=== PATIENT | male | born 1970 | race Hispanic/Latino ===

== ENCOUNTER 2017-06-08 11:52 | Inpatient (IN) | payer OTHER ==
[~2017-06-08] VITALS: Ht 175.3 cm; Wt 82.2 kg
[2017-06-08 13:16] LABS: ABSOLUTE BASOPHIL COUNT 0 /CUMM (0.0-0.2); ABSOLUTE EOSINOPHIL COUNT 0 /CUMM (0.0-0.7); ABSOLUTE GRANULOCYTE CT 4.5 /CUMM (1.4-6.5); ABSOLUTE LYMPH COUNT 3.5 /CUMM (1.2-3.4); ABSOLUTE MONOCYTE COUNT 0.5 /CUMM (0.10-0.60); BASOPHIL % 0.4 % (0.0-2.0); EOSINOPHIL % 0.3 % (0-5); GRANULOCYTE % 52.5 % (42.2-75.2); MEAN CORPUSCULAR HGB 32.5 PG (27.0-31.0); MEAN CORPUSCULAR HGB CONC 33.8 G/DL (33.0-37.0); MEAN CORPUSCULAR VOLUME 96.1 FL (80.0-94.0); MEAN PLATELET VOLUME 7.6 FL (7.4-10.4); PLATELET COUNT 291 /CUMM (130-400); RBC DISTRIBUTION WIDTH 14.3 % (11.5-14.5); RED BLOOD CELL CT 4.48 /CUMM (4.70-6.10); WHITE BLOOD CELL COUNT 8.6 /CUMM (4.8-10.8)
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
[2017-06-08 21:55] VITALS: BP 120/64
[2017-06-09 07:47] VITALS: BP 118/67
[2017-06-09 12:16] VITALS: BP 115/68
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
[2017-06-09 16:05] VITALS: BP 103/58
[2017-06-09 19:59] VITALS: BP 140/68
[2017-06-10 08:56] VITALS: BP 99/62
[2017-06-10 11:54] VITALS: BP 125/77
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
[2017-06-10 15:42] VITALS: BP 116/65
[2017-06-10 20:04] VITALS: BP 113/67
[2017-06-11 07:42] VITALS: BP 122/57
--- NOTE | 2017-06-11 11:08 | CP SOUTH PROGRESS NOTE PSYCH ---
Psych (Inpt) Progress Note Progress Note Include the following elements, when applicable: Involvement in the active treatment of the patient with behavioral observations of the patient and the patient's response to the treatment. Review of the ongoing treatment process in the context of the treatment plan. Indication of how multi-disciplinary staff members are carrying out the treatment plan. Plans for future interventions and recommendations for revision of the treatment plan. Liaison with other physicians/providers. Progress Note: Chart reviewed. Progress discussed with nursing staff. Interviewed patient this morning. Very polite and friendly. Apologetic for outburst yesterday and explained that he received a phone call stating there was an open bed at a local detox. Details were fairly unclear to me but I reassurred him that he will work with the unit staff to find appropriate aftercare. He reports his mood is better today, denies med SEs, and denies SI/hI. Vitals and labs reviewed. Findings are: vitals wnl. No new labs. Mental status exam: adequately groomed HM, multiple tattoos, bearded. Intense eye contact and odd facial expressions. Speech loud, verbose, difficult to interrupt. Mood "alright man". Affect odd, labile, bizarre at times. TP tangential. TC without SI/HI. Denies AVH. Cognition with clear difficulties in short term memory and with evidence of significant impulsivity. I/J limited. Assessment and plan: 47 y/o man with h/o severe TBI, PTSD, and MDD. MSE highly c /w significant brain injury and may benefit from additional agent to target impulsivity and mood lability. Will continue current management as per primary team.
[2017-06-11 12:09] VITALS: BP 112/67
[2017-06-11 16:31] VITALS: BP 118/70
[2017-06-11 19:52] VITALS: BP 107/73
[2017-06-12 07:38] VITALS: BP 114/63
--- NOTE | 2017-06-12 08:48 | CP SOUTH PROGRESS NOTE PSYCH ---
Psych (Inpt) Progress Note Progress Note Dr. Delgadillo's notes were reviewed from the weekend. The treatment team discussed the patient's care, updated his treatment plan, and discussed aftercare plans. The treatment team included nursing staff, social work staff, group and activity therapy staff, and psychiatrist. Vitals: Blood pressure was 114/63 mmHg, pulse was 74 bpm, and temperature was 98.3F. Latest labs were from 06/08/2017: Cholesterol was 150 MG/DL Lab 0 Cholesterol/HDL Ratio 5 % H 06/08/172018 HDL Cholesterol 33 mg/dL L 06/08/172018 LDL Cholesterol, Calc 82 mg/dL 06/08/172018 Triglycerides 177 mg/dL H 06/08/172018 Mental status exam: The patient was adequately groomed, bearded, and showed normal psychomotor activity. His speech was normal, not pressured, and not slurred. He reported that he had a couple of outbursts over the weekend. He reported that it was related to feedback that his girlfriend got from the rehab programs he was trying to get into. Today his speech was normal, however, Dr. Delgadillo noticed over the weekend that he was loud, verbose, and difficult to interrupt. This may have happened after he had his outburst after receiving the news from his girlfriend that rehabs were not going to accept him. Today he described his mood as "alright". He had the reasonable range of affect. He was coherent, there were no loose associations or thought disorder. He denied thinking of suicide, he denied having violent thoughts or thoughts of homicide. He denied hallucinations. There were no delusions during the interview. Assessment: Bobby JonesKendall) is a 47-year-old who was admitted on 06/08/2017 due to "negative thoughts" (i.e. thoughts of suicide as well as thoughts of harming other people). Patient has history of a severe TBI. Family meeting with patient's girlfriend today. The patient seems to be in good control. He has been free of thoughts of suicide and free of thoughts of violence; we agreed on a discharge for tomorrow Treatment Plan Update: Increase Zoloft to 100 mg daily Reduce clonidine to 0.1 mg at bedtime only Continue other medications unchanged We will most likely discharge tomorrow
[2017-06-12 12:19] VITALS: BP 100/67
[2017-06-12 15:45] VITALS: BP 122/57
--- NOTE | 2017-06-12 17:07 | SOCIAL WORKER PROG NOTE PSYCH ---
Social Work Progress Note Progress Note Jessica Parekh (medical student) and this literary writer met with the patient and his girlfriend, Ramonita. Patient shared that he felt anxious about calling [facility] and [facility] and therefore his girlfriend did so for him. Dr. Marquez and this literary writer processed this with him including strategies to manage barriers to treatment. Patient was agreeable to calling [facility]. Patient stated that he is not interested in [facility] due to a negative "feeling" his girlfriend had when she called. Ramonita observed improvement in the patient since hospital admission. Patient stated that he would like to enter rehab and was agreeable to IOP if needing a bridge between this hospital and rehab, and would be interested in [facility]. Per Ramonita, "He definitely wants this medication to be out of his life." Patient and Ramonita confirmed that he will be returning home upon discharge if he does not enter rehab immediately. Patient was provided with a list of inpatient phone numbers and agreed to call them. He was informed that clinical (history and physical, social, diagnostic assessment, initial assessment and medication list) has been faxed to: -[facility], at [address] [facility], , at [address] -[facility], , at [address] [facility], , at [address] -[facility], , at [address] This literary writer left [facility] requesting their fax number for the inpatient program. Patient was informed of this. Patient requested that clinical is not sent to [facility] at this time. This literary writer received a call from Maxine at [facility] stating that the clinical had been reviewed and they felt that a higher level of care is needed. She stated that [facility]'s program is an IOP with housing offered.
--- NOTE | 2017-06-12 19:30 | SOCIAL WORKER PROG NOTE PSYCH ---
Social Work Progress Note Progress Note Concurrent review was submitted through the [facility] online portal and is listed as "Pended." Member Name FELICITAS VARNER Member 1970 Subscriber Name FELICITAS VARNER Pended Authorization #[id number] Client Authorization #[id number] Type of Request CONCURRENT
[2017-06-12 20:04] VITALS: BP 120/68
[2017-06-13 08:21] VITALS: BP 119/64
--- NOTE | 2017-06-13 08:30 | CP SOUTH PROGRESS NOTE PSYCH ---
Psych (Inpt) Progress Note Progress Note The treatment team discussed the patient's care, updated his treatment plan, and discussed aftercare plans. The treatment team included nursing staff, social work staff, group and activity therapy staff, and psychiatrist. Vitals: Blood pressure was 114/63 mmHg, pulse was 74 bpm, and temperature was 98.3F. Latest labs were from 06/08/2017: Cholesterol was 150 MG/DL, Cholesterol/HDL Ratio 5 % H 06/08/17 , HDL Cholesterol 33 mg/dL L , LDL Cholesterol, Calc 82 mg/ dL 06/08/17 Triglycerides 177 mg/dL H Mental status exam: The patient was alert and oriented to time, place, and person. He was in reasonably good spirits this morning. He seem to be ready for discharge and looking forward to it. He was adequately groomed, bearded, and showed normal psychomotor activity. His speech was normal, not pressured, and not slurred. He described his mood as "alright". He denied feeling hopeless, denied thinking of suicide or wishing , and denied having violent thoughts or thoughts of homicide. He was coherent, there were no loose associations or thought disorder. He denied hallucinations. There were no delusions during the interview. Assessment: Bobby Hammer) is a 47-year-old who was admitted on 06/08/2017 due to "negative thoughts" (i.e. thoughts of suicide as well as thoughts of harming other people). Patient has history of a severe TBI. The patient's showed significant improvement and was detoxified without events from opiates. He feels ready for discharge and he seems clinically ready for discharge without any thoughts of self-harm or violent thoughts or thoughts of homicide. There was no psychotic symptoms throughout his admission. Treatment Plan Update: Discharge home with plan to attend the intensive outpatient program dual track Treatment Plan Update: Increase Zoloft to 100 mg daily Reduce clonidine to 0.1 mg at bedtime only Continue other medications unchanged We will most likely discharge tomorrow
[2017-06-13] MEDS ORDERED: LOPERAMIDE2 M2 PO (10:01)
[2017-06-13] MEDS ORDERED: NICOTINE PATCH1 EAC3 TOP (10:01)
[2017-06-13] MEDS ORDERED: ZOLOFT100 M1 PO (10:01)
--- NOTE | 2017-06-13 10:41 | Patient Discharge Instructions ---
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 was Jimmy HALL,Kyler * If you are experiencing an emergency related to this hospitalization, please call [phone] to contact the treating psychiatrist or the psychiatrist-on- call. * To Request a copy of your medical records, please contact the Medical Records Department at [phone]. * To request results of studies pending at the time of discharge, please call [phone]. * Continue your Medications until directed to stop by your Healthcare provider. General Medication Information Please continue to take your new medications and your continued home medications , unless otherwise indicated on your discharge medication list, or unless directed by your MD or [facility] to stop them. Special Instructions Diet Regular Activity Normal - Tobacco Use Treatment Offered Post DC Medications Offered: Script Given-See Med List Post DC Tobacco Treatment Plan: Refused Tobacco Tx Pgm - EtOH/Drug Use D/O Treatment Offered Post DC Medications Offered: Med Not Indicated for D/O Post DC EtOH/SubAbuse TX Plan: [facility] SubAbuse/Dual IOP Metabolic Screening ([X]) Not Applicable, patient not on a neuroleptic. Advance Directives Does the Patient have Medical Advance Directives No/Refused further info Does Pt have Psychiatric Advance Directives? No/Refused further info Does Patient have a Designated Surrogate Decision Maker: No Information About Psychiatric Advance Directives Provided? Refused Discharge Plan Post Hospital Treatment Plan: IOP-Dual
[2017-06-13 12:08] VITALS: BP 122/69
[2017-06-13 12:35] VITALS: BP 122/69
--- NOTE | 2017-06-13 16:42 | SOCIAL WORKER PROG NOTE PSYCH ---
Social Work Progress Note Progress Note This video game script writer met with patient. He described his mood as "good" and was looking forward to going to his IOP intake today (at 2pm). Patient denied SI/HI/AH/VH. He identified his children, mother and Ramonita as protective factors. He stated that his fiance, Ramonita, will be providing transportation home from the IOP intake today. He identified a safety plan in which he would call his therapist and/or utilize the crisis numbers/warm lines, 911, 211 or the ER. Patient stated that he would contact the therapist he has seen in the past (Amrita Jerez) to schedule an individual therapy session and did not need this to be scheduled prior to discharge. Patient was informed that he would be provided with phone numbers for the rehab programs that he was referred to, which he agreed to continue to call following discharge to inquire about bed availability. Patient was informed that this video game script writer received a call from [facility] stating that they did not feel they were the appropriate program and recommended a higher level of care as they are IOP/[facility] with housing. Patient accepted the IOP intake appointment, today at 2pm, as well as the smoking cessation group schedule. Faxed Referral(s) Referred To: [facility] Transition of Care Documents sent: Health Summary Faxed to: [facility] Fax #: [phone] Faxed by: Christine Wagner LCSW Date faxed: 06/13/17 Time Faxed: [phone]
--- NOTE | 2017-06-15 14:01 | SOCIAL WORKER PROG NOTE PSYCH ---
Social Work Progress Note Progress Note This telegraphic typewriter mechanic received a call from Lorna at [facility]. The message was relayed to Trung Pizarro at [facility] with Lorna's phone number ([phone]); she did not provide any additional information/message. He stated that he would contact the patient.
== END 2017-06-13 14:00 | DRG 58 ==
LOC: ERH 11:52 → ERHI 19:47 → CP SOUTH 19:47 → ENTRNSPT 21:36 → EDTRNSPTSTS 21:41 → CMPTRNSPT 21:51 → CP SOUTH 21:53
PROVIDERS: Physician Assistant; Psychiatry & Neurology Psychiatry
DX: S06.2X9S Diffuse traumatic brain injury with loss of consciousness of unspecified duration, sequela (principal); F06.34 Mood disorder due to known physiological condition with mixed features; F11.10 Opioid abuse, uncomplicated
CPT/HCPCS: 80307; 90834; G0480; J0515; J1630; J3101